=== PATIENT | female | born 1990 | race American Indian/Alaskan Native ===

== ENCOUNTER 2020-09-07 13:07 | Outpatient (CLI) | payer MEDICAID ==
[2020-09-07 14:21] LABS: Hematocrit 27.4 % (30.3-42.9); Hemoglobin 9.8 gm/dl (10.1-14.3); Mean Corpuscular HGB Conc 36 % (30-34); Mean Corpuscular Volume 90 fl (79-97); Platelet Count 256 K/mm3 (140-440); Red Blood Count 3.05 M/mm3 (3.65-5.03); Red Cell Distribution Width 15.5 % (13.2-15.2)
[2020-09-07 14:45] LABS: Alanine Aminotransferase 10 units/L (7-56); Uric Acid 7.1 mg/dL (3.5-7.6)
[2020-09-07 15:00] LABS: Bacteria,Urine 2+ /HPF (Negative); Bilirubin,Urine NEG (Negative); Blood,Urine MOD (Negative); Color,Urine Straw (Yellow); Urobilinogen,Urine < 2.0 mg/dL (<2.0)
[2020-09-07 15:27] VITALS: BP 124/67
== END 2020-09-07 15:36 | disposition home or self-care (01) ==
LOC: TRG 13:07 → APU 13:08 → TRG 15:36
PROVIDERS: ATTEND Obstetrics & Gynecology
DX: O16.3 Unspecified maternal hypertension, third trimester (principal); Z3A.38 38 weeks gestation of pregnancy
CPT/HCPCS: 36415; 59025; 81001; 82565; 83615; 84450; 84460; 84550; 85027; 87086